=== PATIENT | male | born 1975 | race African-American/Black ===

== ENCOUNTER 2023-08-07 10:27 | Emergency (ER) | payer MEDICAID, OTHER ==
[~2023-08-07] VITALS: Ht 188 cm; Wt 136.0 kg
[2023-08-07 10:45] VITALS: O2SAT 97
[2023-08-07] MEDS ORDERED: ACETAMINOPHEN 325MG TABLET PO ONE (11:00)
[2023-08-07] MEDS ORDERED: GABA100C MT (11:46)
[2023-08-07 13:44] VITALS: BP 123/87; PULSE 69; RESP 18; TEMP 98.1
== END 2023-08-07 13:45 | disposition home or self-care (01) ==
LOC: ER 10:27
DX: M79.641 Pain in right hand (principal); E11.22 Type 2 diabetes mellitus with diabetic chronic kidney disease; N18.9 Chronic kidney disease, unspecified; Z98.890 Other specified postprocedural states
CPT/HCPCS: 73130; 99283